=== PATIENT | female | born 1985 | race Caucasian/White ===

== ENCOUNTER → 2016-07-10 | Outpatient (CLI) | payer OTHER ==
[~2016-07-10] MED LIST: MTR600X PO; OXYC-57 PO; PRENTAB26 PO; RANI150T3 PO; TYL325X PO
[2016-07-10 10:47] LABS: BASO % 0.3 %; BASO ABS # 0.02 K/uL (0-0.2); COMPLETE YES; EOS % 0.3 %; HEMATOCRIT 39.3 % (37-47); IG% 0.2 %; LYMPH % 18.7 %; MEAN CELL VOLUME 87.5 fL (80-100); MEAN CORPUSCULAR HEMOGLOBIN 30.7 pg (25-34); MEAN CORPUSCULAR HGB CONC 35.1 g/dl (32-36); MEAN PLATELET VOLUME 9.7 fL (7.4-10.4); MONO % 6.5 %; PLATELET COUNT 246 K/uL (130-400); RED BLOOD COUNT 4.49 M/uL (4.2-5.4); WHITE BLOOD COUNT 6.43 K/uL (4.8-10.8)
[2016-07-10 14:02] LABS: URINE APPEARANCE CLEAR (CLEAR); URINE BILIRUBIN NEG (NEG); URINE COLOR DK YELLOW; URINE EPITHELIAL CELL AUTO >30 /lpf (0-5); URINE NITRITE NEG (NEG); URINE SPECIFIC GRAVITY 1.026 (1.000-1.030); UROBILINOGEN NEG (NEG)
[2016-07-10 14:06] LABS: MANUAL MICROSCOPIC REQUIRED? NO; REVIEW REQ? YES
[2016-07-10 14:26] LABS: URINE MUCUS PRESENT (NONE PRSENT)
[2016-07-13 23:54] LABS: CHLAMYDIA TRACH RNA*** NOT DETECTED (NOT DETECTED); GC (NEIS GONORRHOEAE)RNA** NOT DETECTED (NOT DETECTED)
== END | disposition home or self-care (01) ==
LOC: C.LAB1850 09:21
PROVIDERS: ATTEND Obstetrics & Gynecology
DX: Z34.90 Encounter for supervision of normal pregnancy, unspecified, unspecified trimester (principal)

== ENCOUNTER → 2016-09-04 | Outpatient (CLI) | payer OTHER ==
[2016-09-04 13:31] LABS: GTGD 50 Grams
== END | disposition home or self-care (01) ==
LOC: C.LAB1850 09:34
PROVIDERS: ATTEND Obstetrics & Gynecology
DX: O30.041 Twin pregnancy, dichorionic/diamniotic, first trimester (principal)

== ENCOUNTER → 2016-11-12 | Outpatient (CLI) | payer OTHER ==
[~2016-11-12] MED LIST changes: -OXYC-57 PO
== END | disposition home or self-care (01) ==
LOC: C.CPL 09:53
PROVIDERS: ATTEND Obstetrics & Gynecology
DX: O35.8XX0 Maternal care for other (suspected) fetal abnormality and damage, not applicable or unspecified (principal)

== ENCOUNTER → 2016-11-27 | Outpatient (CLI) | payer OTHER ==
[2016-11-27 11:27] LABS: URINE APPEARANCE CLEAR (CLEAR); URINE BILIRUBIN NEG (NEG); URINE COLOR YELLOW; URINE EPITHELIAL CELL AUTO >30 /lpf (0-5); URINE NITRITE NEG (NEG); URINE PH 7.5 (4.5-7.5); URINE SPECIFIC GRAVITY 1.011 (1.000-1.030); UROBILINOGEN NEG (NEG)
[2016-11-27 11:29] LABS: MANUAL MICROSCOPIC REQUIRED? NO; REVIEW REQ? NO
[2016-11-27 12:13] LABS: HEMATOCRIT 34.1 % (37-47)
[2016-11-27 13:16] LABS: GTGD 50 Grams
== END | disposition home or self-care (01) ==
LOC: C.LAB1850 09:18
PROVIDERS: ATTEND Obstetrics & Gynecology
DX: O30.042 Twin pregnancy, dichorionic/diamniotic, second trimester (principal); Z3A.00 Weeks of gestation of pregnancy not specified

== ENCOUNTER → 2016-12-03 | Outpatient (CLI) | payer OTHER | END | disposition home or self-care (01) | LOC: C.LAB1850 07:06 | PROVIDERS: ATTEND Obstetrics & Gynecology | DX: O28.1 Abnormal biochemical finding on antenatal screening of mother (principal); Z3A.00 Weeks of gestation of pregnancy not specified ==

== ENCOUNTER 2016-12-22 10:04 | Outpatient (CLI) | payer OTHER ==
--- NOTE | 2016-12-22 12:16 | DIAGNOSTIC IMAGING REPORT ---
BIO PROF W/O NST-TWINS CLINICAL HISTORY: 31 years-old Female presenting with decreased movement.. TECHNIQUE: Real-time grayscale and M-mode Doppler ultrasound imaging of the pelvis was performed using a transabdominal probe. COMPARISON: None. FINDINGS: Uterus: Two live intrauterine pregnancies further described below. Amniotic fluid index 10.4 cm, which is normal. Fetus A: heart rate: 153 bpm Presentation: Breech Ultrasound biophysical profile score: 8/8 Fetus B: heart rate: 149 bpm Presentation: Breech Ultrasound biophysical profile score: 8/8 Anterior placental placental implantation.No perigestational fluid to suggest hemorrhage. Cervix long and closed, measuring 3.6 cm. Right adnexa: Not evaluated. Left adnexa: Not evaluated. Other: No free fluid. IMPRESSION: Two live intrauterine pregnancies with biophysical profile scores of 8/8 by ultrasound. Electronically signed by: Clark Maxwell M.D. 12/22/2016 12:15 PM Dictated Date/Time: 12/22/2016 12:11 PM
== END 2016-12-22 12:35 | disposition home or self-care (01) ==
LOC: C.OPB 10:04 → C.LD 10:04 → C.OPB 12:35
PROVIDERS: ATTEND Obstetrics & Gynecology
DX: O36.8130 Decreased fetal movements, third trimester, not applicable or unspecified (principal); O30.003 Twin pregnancy, unspecified number of placenta and unspecified number of amniotic sacs, third trimester; Z3A.31 31 weeks gestation of pregnancy

== ENCOUNTER 2016-12-29 09:25 | Outpatient (CLI) | payer OTHER | END 2016-12-29 10:10 | disposition home or self-care (01) | LOC: C.OPB 09:25 → C.LD 09:25 → C.OPB 10:10 | PROVIDERS: ATTEND Obstetrics & Gynecology | DX: O30.009 Twin pregnancy, unspecified number of placenta and unspecified number of amniotic sacs, unspecified trimester (principal); Z3A.00 Weeks of gestation of pregnancy not specified ==

== ENCOUNTER 2017-01-05 08:09 | Outpatient (CLI) | payer OTHER | END 2017-01-05 08:55 | disposition home or self-care (01) | LOC: C.OPB 08:09 → C.LD 08:09 → C.OPB 08:55 | PROVIDERS: ATTEND Obstetrics & Gynecology | DX: O30.009 Twin pregnancy, unspecified number of placenta and unspecified number of amniotic sacs, unspecified trimester (principal); Z3A.00 Weeks of gestation of pregnancy not specified ==

== ENCOUNTER 2017-01-12 08:17 | Outpatient (CLI) | payer OTHER ==
[~2017-01-12] VITALS: Ht 167.6 cm; Wt 92.0 kg
[2017-01-12 08:39] VITALS: Ht 167.6 cm; Wt 92.0 kg
[2017-01-23] MEDS ORDERED: MTR600X PO (14:54)
[2017-01-23] MEDS ORDERED: OXYC-57 PO (14:54)
== END 2017-01-12 08:57 | disposition home health service (06) ==
LOC: C.LD 08:17 → C.OPB 08:17
PROVIDERS: ATTEND Obstetrics & Gynecology
DX: O30.009 Twin pregnancy, unspecified number of placenta and unspecified number of amniotic sacs, unspecified trimester (principal); Z3A.00 Weeks of gestation of pregnancy not specified

== ENCOUNTER 2017-01-19 08:28 | Outpatient (CLI) | payer OTHER ==
[~2017-01-19 08:28] MED LIST changes: -MTR600X PO; -RANI150T3 PO; -TYL325X PO
--- NOTE | 2017-01-21 12:56 | EDITING REQUIRED CODING QUERY ---
DIAGNOSIS NEEDED To promote full compliance with coding requirements relating to patient care, physician participation is requested in all cases of malt house loader uncertainty. Please assist us with the question(s) below: Coding Question: The patient received care in labor and delivery on 01/19/17 as noted within the record. Please document the diagnosis that is being addressed by the medication/treatment. Provider Response: DIAGNOSIS: twins WEEKS GESTATION: 35 weeks Thank you for your assistance, Amy Calle - Counter Stacker
[2017-01-23] MEDS ORDERED: MTR600X PO (14:54)
[2017-01-23] MEDS ORDERED: OXYC-57 PO (14:54)
== END 2017-01-19 09:10 | disposition home or self-care (01) ==
LOC: C.OPB 08:28 → C.LD 08:29 → C.OPB 09:10
PROVIDERS: ATTEND Obstetrics & Gynecology
DX: O30.003 Twin pregnancy, unspecified number of placenta and unspecified number of amniotic sacs, third trimester (principal); Z3A.35 35 weeks gestation of pregnancy